=== PATIENT | male | born 1955 | race Caucasian/White ===

== ENCOUNTER 2017-04-03 10:38 | Inpatient (IN) | payer MEDICARE ==
[2017-04-03] VITALS (23 sets, daily range): BP systolic 103–160; BP diastolic 69–101
[~2017-04-03] VITALS: Ht 177.8 cm; Wt 68.1 kg
[2017-04-03 11:07] LABS: HEMOGLOBIN 14.1 g/dL (14.1-18.0); LYMPH # 2.2 K/mm3 (0.7-4.5); LYMPH % 12.4 % (10-50)
--- NOTE | 2017-04-03 11:11 | Emergency Room Report ---
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 Clinical Suspician of Infection? Mental Status: Sepsis Risk: Have you (or family members/close friends) recently traveled outside the [place]? If Yes, where/when: Have you had exposure to infectious disease within the past month? TB? Other? Specify: Comment The patient complains of constant chest pain for one week with shortness of breath. He denies palpitations or sensation of tachycardia. He says he saw his primary care physician in the office on Sunday, but states no tests were done at that time. He saw him again today and was sent to the emergency room. He denies any history of cardiac disease. His only medication is for arthritis. He is a former smoker. ALLERGIES Coded Allergies: No Known Drug Allergies (03/19/15) History Medical History General Angina: No FL: No Hypertension? No Hyperlipidemia? No CHF? No COPD? No Asthma? No Hernia? Yes CVA? No Seizures? No Diabetes? No UTI? No Stones? No GB Disease: No Hepatitis? No Cataracts? No Glaucoma? No TB? No Cancer? No Immunization Hx DT/Tetanus > 10 Years Ago Flu Refused Pneumonia Never Had Surgical Hx Previous Surgery?Y CARPEL TUNNEL LEFT HAND CERVICAL DISC FUSION/PLAT LEFT INGUINAL HERNIA RPR Family History Family Hx Diabetes No CAD No Hypertension No Hyperlipidemia No Cancer No TB No Social History Smoking Hx Packs/day 1 1/2 - 2 Packs Alcohol Alcohol: No Review of Systems All Other Systems Reviewed and Negative Respiratory shortness of breath Cardiovascular chest pain, denies palpitations, denies syncope Gastrointestinal nausea, vomiting Physical Exam Vital Signs Vital Signs Date Time Temp Pulse Resp B/P Pulse O2 O2 Flow FiO2 Ox Delivery Rate 04/03 1210 60 18 99/76 98 2 04/03 1200 66 18 98/43 100 2 04/03 1144 81 18 134/66 100 2 04/03 1140 85 18 114/77 100 3 04/03 1124 87 18 103/83 100 3 04/03 1055 20 04/03 1055 99.1 219 20 159/95 100 3 04/03 1038 99.1 219 20 159/95 96 General Appearance moderate distress Eye Exam - bilateral eye normal exam, bilateral eye PERRL, bilateral eye EOMI Ear, Nose, Throat hearing grossly normal, normal ENT inspection Neck normal inspection, non-tender, supple, full range of motion Respiratory Status Yes: trachea midline, chest symmetrical. No: respiratory distress. Lung Sounds bilateral: normal breath sounds, lungs clear. Cardiovascular no peripheral edema, no gallop, no JVD, no murmur, no rub, tachycardia Peripheral Pulses Comment Weak Gastrointestinal normal bowel sounds, normal exam, non tender, soft, no organomegaly Extremities non-tender, normal range of motion, normal inspection Neurologic alert, alteration specialist II-XII nml as tested, normal exam, no motor/sensory deficits, oriented x 3 Mental status normal mood/affect Skin pallor Medical Decision Making LABS/Meds/Orders Pt receiving controlled substance in ED? Yes Malcom was queried for this patient? No Reason not queried - emergent pt cond=no time Results/Orders Laboratory Tests 04/03/17 1125: PT 14.2 H, INR 1.31 H 04/03/17 1050: Sodium 134 L, Potassium 4.4, Chloride 100, Carbon Dioxide 23, BUN 39 H, Creatinine 1.4 H, Estimated GFR (MDRD) 52, Glucose 163 H, Calcium 8.1 L, Total Bilirubin 1.0, AST 118 H, ALT 206 H, Alkaline Phosphatase 126 H, Creatine Kinase 120, CK-MB (CK-2) Rel Index 2.0, CK and CKMB Interp 2.4, Troponin I 0.62 H, Total Protein 6.6, Albumin 2.9 L, Globulin 3.7 H, Albumin/ Globulin Ratio 0.8 L, WBC 17.6 H, RBC 4.48 L, Hgb 14.1, Hct 42.7, MCV 95.5, RDW 13.0, Plt Count 225, MPV 8.7, Gran % 79.7, Gran # 14.0 H, Total Counted 100 , Lymphocytes % 12.4, Monocytes % 7.3, Eosinophils % 0.5, Basophils % 0.1, Neutrophils 76, Band Neutrophils 2, Lymphocytes (Manual) 15, Lymphocytes # 2.2, Monocytes (Manual) 6, Monocytes # 1.3 H, Eosinophils # 0.1, Basophils # 0.0, Metamyelocytes 1, Platelet Estimate NORMAL, PUBS MCHC 32.9, MCH 31.4 H Current Medication Orders Sig/Silvano Start time Last Medication Dose Route Stop Time Status Admin Aspirin 0 .STK-MED ONE 04/03 1144 DC .ROUTE Amiodarone HCl 150 MG ONCE ONE 04/03 1115 DC 04/03 Dextrose/Water 100 ML IV 04/03 1124 1138 Amiodarone HCl 900 MG .[id number] 04/03 1115 AC 04/03 Dextrose/Water 500 ML IV 04/04 0248 1155 Aspirin 324 MG ONCE ONE 04/03 1115 DC 04/03 PO 04/03 1116 1144 Fentanyl Citrate 100 MCG ONCE ONE 04/03 1115 DC 04/03 IV 04/03 1116 1057 Metoprolol Tartrate 5 MG ONCE ONE 04/03 1115 DC 04/03 IV 04/03 1116 1102 Midazolam HCl 5 MG ONCE ONE 04/03 1115 DC 04/03 IV 04/03 1116 1055 Metoprolol Tartrate 0 .STK-MED ONE 04/03 1102 DC IV Sodium Chloride 10 ML PRN PRN 04/03 1100 AC IV 04/04 1100 Fentanyl Citrate 0 .STK-MED ONE 04/03 1055 DC IV Midazolam HCl 0 .STK-MED ONE 04/03 1054 DC .ROUTE Sodium Chloride 1,000 ML .STK-MED ONE 04/03 1045 DC IV Orders Procedure Date/time Status Decision to admit 04/03 1219 Active LHC W/VENTRICLE 04/03 1218 Active PROTHROMBIN TIME 04/03 1110 Complete MAGNESIUM 04/03 1107 Active ELECTROCARDIOGRAM REQUEST 04/03 1101 Active IV SALINE LOCK 04/03 1101 Active CBC WITH AUTO DIFF 04/03 1101 Complete CARDIAC ENZYMES 04/03 1101 Complete CHEM 12 PROFILE 04/03 1101 Complete DIFFERENTIAL-WBC 04/03 1050 Complete CM/EKG CM/EKG Comments EKG interpreted by Pedrito Adame MD: Rhythm: Wide complex tachycardia, likely ventricular tachycardia Rate: 215 EKG #2 interpreted by Pedrito Adame MD: Rhythm: sinus Rate: 92 Gray: normal Ectopy: Premature ventricular contractions Conduction: normal ST Segment Changes: none T Wave Changes: Inferior and lateral inversion Q Waves: none No evidence of acute ischemia or injury Pulmonary disease pattern EKG #3 interpreted by Pedrito Adame MD: Rhythm: sinus bradycardia Rate: 59 Gray: normal Ectopy: Premature ventricular contractions Conduction: normal ST Segment Changes: none T Wave Changes: Inversion inferior and lateral Q Waves: none No evidence of acute ischemia or injury Progress - Patient moved to critical care room. Call placed to cardiology. Dr. Lopez presented immediately to the emergency department. The patient was sedated and cardioverted. 12:33 PM: I have discussed the case with Zaira for Dr. Gonzales who agrees to admit the patient to the hospital. We discussed the patient's clinical information, including history, exam, laboratory and radiology results and ED course. Per hospital procedure, I will write temporary bridge inpatient orders on the patient. Specific orders requested by the admitting physician: Continue amiodarone drip, nothing by mouth for cardiac cath Procedures Cath/NG/IV/CPR/Add.Proc Physician assisted procedures Risks/benefits discussed with pt/guardian? 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 Defibrillation pads applied. Sedated with a total of 5 mg of Versed and 100 g of fentanyl. Good sedation obtained. Cardioverted with 200 J synchronized. Sinus rhythm restored. Patient tolerated the procedure well. Departure Departure Disposition Still a Patient Clinical Impression Primary Impression: Ventricular tachycardia Secondary Impressions: Non-ST elevation (NSTEMI) myocardial infarction Condition STABLE Referrals Kaveh OLIVARES,Tru Lee (Family) ED Critical Care Critical Care Yes Time spent 75-104 min Vital system(s) involved: Circulatory Failure I was present at bedside for Coordinating pt's care, Interpreting EKGs/Strips , During my initial exam, Reviewing lab results, Reviewing old records, Discussing pt condition, For re-examinations, Examining radiographs at 1302
[2017-04-03 11:42] LABS: NEUTROPHILS 76 % (42-76)
[2017-04-03 12:06] LABS: BUN 39 mg/dL (7-18)
[2017-04-03 12:08] LABS: GFR (ESTIMATED) 52 ML/MIN (>60)
--- NOTE | 2017-04-03 12:22 | RADIOLOGY REPORT PS360 ---
CHEST-PORTABLE COMPARISON: None HISTORY: Chest pain TECHNIQUE: Portable upright chest FINDINGS: The lung powell are well expanded. There are prominent somewhat coarse bronchovascular markings in left perihilar region and left lower lobe but they are partially obscured by overlying defibrillator paddle. The left upper lung powell are relatively clear. Cardiac size is normal and the vascularity is normal and is no pleural fluid. IMPRESSION: Coarse markings as described suggesting a diffuse pneumonia involving left lower lobe but somewhat poorly evaluated on this film and without old films for comparison. If pneumonia strongly suspected clinically a repeat PA and lateral chest would be helpful for better evaluation
--- OUTSIDE RECORDS SUMMARY | 2017-04-03 12:22 | External Medical Summary Rpt | CCD ---
Author Author , ROSENDO Organization [facility] Address Unknown Phone [email or web address] Purpose Continuity of Care Document - 04-03-2017 through 2016 Results Labs Lab Lab Date Result Refere Interp Status Commen Order Detail nces retati t Range on Whole blood INR measurement (04-03-2017 11:25) Comment: IS PATIENT ON ANTICOAGULANTS? Y Whole = 1.31 0.9-1.1 complet blood 017 ed INR 11:25 measure ment Comment: INDICATION INR RANGE Comment: Comment: THERAPY FOR DVT, PE, ATRIAL FIB; 2.0 - 3.0 Comment: PROPHYLAXIS FOR VTE Comment: Comment: THERAPY FOR MECHANICAL HEART 2.5 - 3.5 Comment: VALVE; PREVENTION OF SYSTEMIC Comment: EMBOLISM SECONDARY TO AMI Prothro = 14.2 9.4-11. complet mbin 017 SECONDS 8 ed time 11:25 (PT) in platele t poor p CBC w auto diff (04-03-2017 10:50) Automat = 0.0 0-0.2 complet ed 017 K/MM3 ed blood 10:50 basophi l count (count/ vo Baso % = 0.1 % 0.1-2.0 complet 017 ed 10:50 Automat = 0.1 0.0-0.4 complet ed 017 K/mm3 ed blood 10:50 eosinop hil count Automat = 0.5 % 0.1-12. complet ed 017 0 ed blood 10:50 eosinop hils/10 0 leukocy t Blood = 14.0 1.3-8.0 complet granulo 017 K/mm3 ed cytes 10:50 automat ed count (numb Granulo = 79.7 37.0-80 complet cyte 017 % .0 ed percent 10:50 age Blood = 42.7 42.0-52 complet hematoc 017 % .0 ed rit 10:50 (volume fractio n) Blood = 14.1 14.1-18 complet hemoglo 017 g/dL .0 ed bin 10:50 measure ment (mass/v olum Absolut = 2.2 0.7-4.5 complet e 017 K/mm3 ed lymphoc 10:50 yte count Lymphoc = 12.4 10-50 complet yte 017 % ed count, 10:50 blood, automat ed Mean = 31.4 27-31.2 complet corpusc 017 pg ed ular 10:50 hemoglo bin (MCH) determ Automat = 32.9 31.8-35 complet ed 017 g/dl .4 ed erythro 10:50 cyte mean corpusc ular h Automat = 95.5 82.2-97 complet ed 017 fl .8 ed erythro 10:50 cyte mean corpusc ular v Absolut = 1.3 0.1-1.0 complet e 017 K/mm3 ed monocyt 10:50 e count [place] % = 7.3 % 1.7-9.3 complet 017 ed 10:50 Automat = 8.7 7.4-10. complet ed 017 fl 4 ed blood 10:50 platele t mean volume mikie Blood = 225 142-424 complet platele 017 K/mm3 ed t count 10:50 Red = 4.48 4.6-6.2 complet blood 017 M/mm3 ed cell 10:50 count Automat = 13.0 11.5-17 complet ed 017 % .5 ed erythro 10:50 cyte distrib ution width Blood = 17.6 4.8-10. complet leukocy 017 K/MM3 8 ed wesly 10:50 count (number /volume ) Differential panel, method unspecified - (04-03-2017 10:50) Automat 2 = 2 % 0-8 complet ed 017 ed blood 10:50 band neutrop hil percent a Manual = 1 % 0-1 complet blood 017 ed metamye 10:50 locytes /100 leukocy t Monocyt = 6 % 2-9 complet e % 017 ed 10:50 Platele NORMAL complet t 017 NORMAL ed estimat 10:50 L e Neutrop = 76 % 42-76 complet hil 017 ed count 10:50 LYMPH 15 % 10-50 complet 017 ed 10:50 Blood = 100 complet total 017 #CELLS ed cell 10:50 count Differential panel, method unspecified - (04-03-2017 10:50) LYMPH 15 % 10% - Normal complet 017 50% ed 10:50 Platele NORMAL complet ts 017 ed [Presen 10:50 ce] in Blood by Light microsc opy
--- OUTSIDE RECORDS SUMMARY | 2017-04-03 12:22 | External Medical Summary Rpt ---
Author Author ROSENDO Young, [employer] Organization [employer] Address Unknown Phone Unavailable Results INR in Blood by Coagulation assay Observa Value Referen Units Interpr Notes Date tion ce etation Range IS PATIENT ON ANTICOAGULANTS? Y INR in 0.9 - 1.1 No High INDICATIO Apr 03 Blood by informati N 2017 Coagulati on in 11:25 AM on assay source INR data RANGETHER APY FOR DVT, PE, ATRIAL FIB; 2.0 - 3.0PROPHY LAXIS FOR VTETHERAP Y FOR MECHANICA L HEART 2.5 - 3.5VALVE; PREVENTIO N OF SYSTEMICE MBOLISM SECONDARY TO AMI Prothromb 9.4 - SECONDS High No Apr 03 in time 11.8 informati 2016 (PT) in on in 11:25 AM Platelet source poor data plasma by Coagulati on assay Cardiac enzymes Observa Value Referen Units Interpr Notes ti ce etation Range Creatine 0 - 4.0 U/L Normal No Apr 03 kinase.MB informati 2016 /Creatine on in 10:50 AM source kinase.to data abdiel [Ratio] in Serum or Plasma Creatine 0.0 - 3.6 ng/mL Normal No Apr 03 kinase.MB informati 2017 on in 10:50 AM [Mass/vol source ume] in data Serum or Plasma Creatine 39 - 308 U/L Normal No Apr 03 kinase informati 2016 [Enzymati on in 10:50 AM c source activity/ data volume] in Serum or Plasma Troponin 0.00 - ng/mL High Apr 03 I.cardiac 0.06 2017 CRITICAL 10:50 AM [Mass/vol RESULTS ume] in Serum or RESU Plasma LTS CALLED TO: RUBIN.MAN 04/03/17 1208 O'Vasu,Ka itlyn> 0.5 IS CONSISTEN T WITH MYOCARDIA L ISCHEMIA OR INFARCTIO N Comprehensive metabolic 2000 panel in Serum or Plasma Observa Value Referen Units Interpr Notes Date tion ce etation Range Albumin/G 1.1 - 1.8 No Low No Apr 03 lobulin informati informati 2016 [Mass on in on in 10:50 AM ratio] in source source Serum or data data Plasma Albumin 3.4 - 5.0 gm/dL Low No Apr 03 [Mass/vol informati 2017 ume] in on in 10:50 AM Serum or source Plasma data Alkaline 46 - 116 U/L High Apr 03 phosphata informati 2016 se on in 10:50 AM [Enzymati source c data activity/ volume] in Serum or Plasma Bilirubin 0.2 - 1.0 mg/dL Normal Apr 03 .total informati 2016 [Mass/vol on in 10:50 AM ume] in source Serum or data Plasma Urea 7 - 18 mg/dL High Apr 03 nitrogen informati 2016 [Mass/vol on in 10:50 AM ume] in source Serum or data Plasma Calcium 8.5 - mg/dL Low Apr 03 [Mass/vol 10.1 informati 2016 ume] in on in 10:50 AM Serum or source Plasma data Chloride 98 - 107 mmoL/L Normal Apr 03 [Moles/vo informati 2017 lume] in on in 10:50 AM Serum or source Plasma data Carbon 21.0 - mmoL/L Normal Apr 03 dioxide, 32.0 informati 2016 total on in 10:50 AM [Moles/vo source lume] in data Serum or Plasma Creatinin 0.70 - mg/dL High No Apr 03 e 1.30 informati 2016 [Mass/vol on in 10:50 AM ume] in source Serum or data Plasma Estimated >60 ML/MIN No REFERENCE Apr 03 informati RANGE: 2017 glomerula on in >60 10:50 AM r source ML/MIN/1. filtratio data 73 SQUARE n rate METERSIf (GF this patient is -A merican, then multiply theresult by 1.210. Globulin 1.3 - 3.2 gm/dL High Apr 03 [Mass/vol informati 2017 ume] in on in 10:50 AM Serum source data Glucose 74 - 106 mg/dL High No Apr 03 [Mass/vol informati 2017 ume] in on in 10:50 AM Serum or source Plasma data Potassium 3.5 - 5.1 mmoL/L Normal No Apr 03 informati 2017 [Moles/vo on in 10:50 AM lume] in source Serum or data Plasma Sodium 136 - 145 mmoL/L Low No Apr 03 [Moles/vo 2016 lume] in on in 10:50 AM Serum or source Plasma data Aspartate 15 - 37 U/L High Apr 032016 aminotran on in 10:50 AM sferase source [Enzymati data c activity/ volume] in Serum or Plasma Alanine 12 - 78 U/L High Apr 03 aminotran 2016 sferase on in 10:50 AM [Enzymati source c data activity/ volume] in Serum or Plasma Protein 6.4 - 8.2 gm/dL Normal Apr 03 [Mass/vol 2016 ume] in on in 10:50 AM Serum or source Plasma data CBC W Auto Differential panel in Blood Observa Value Referen Units Interpr Notes Date tion ce etation Range Basophils 0 - 0.2 K/MM3 Normal Apr 032016 [#/volume on in 10:50 AM ] in source Blood by data Automated count Basophils 0.1 - 2.0 % Normal No Apr 032016 leukocyte on in 10:50 AM s in source Blood by data Automated count Eosinophi 0.0 - 0.4 K/mm3 Normal No Apr 03 ls 2016 [#/volume on in 10:50 AM ] in source Blood by data Automated count Eosinophi 0.1 - % Normal Apr 03 ls/100 12.0 2016 leukocyte on in 10:50 AM s in source Blood by data Automated count Granulocy 1.3 - 8.0 K/mm3 High No Apr 03 wesly 2016 [#/volume on in 10:50 AM ] in source Blood by data Automated count Granulocy 37.0 - % Normal Apr 03 wesly/100 80.0 2016 leukocyte on in 10:50 AM s in source Blood by data Automated count Hematocri 42.0 - % Normal Apr 03 t [Volume 52.0 2016 on in 10:50 AM Fraction] source of Blood data Hemoglobi 14.1 - g/dL Normal Apr 03 n 18.0 2016 [Mass/vol on in 10:50 AM ume] in source Blood data Lymphocyt 0.7 - 4.5 K/mm3 Normal Apr 03 es 2016 [#/volume on in 10:50 AM ] in source Unspecifi data ed specimen by Automated count Lymphocyt 10 - 50 % Normal Apr 03 es 2016 [#/volume on in 10:50 AM ] in source Unspecifi data ed specimen by Automated count Erythrocy 27 - 31.2 pg High No Apr 03 te mean 2016 corpuscul on in 10:50 AM ar source hemoglobi data n [Entitic mass] Erythrocy 31.8 - g/dl Normal Apr 03 te mean 35.4 2016 corpuscul on in 10:50 AM ar source hemoglobi data n concentra tion [Mass/vol ume] by Automated count Erythrocy 82.2 - fl Normal Apr 03 te mean 97.8 2016 corpuscul on in 10:50 AM ar volume source [Entitic data volume] by Automated count Monocytes 0.1 - 1.0 K/mm3 High Apr 032016 [#/volume on in 10:50 AM ] in source Blood by data Automated count Monocytes 1.7 - 9.3 % Normal No Apr 03 /100 2016 leukocyte on in 10:50 AM s in source Blood by data Automated count Platelet 7.4 - fl Normal Apr 03 mean 10.4 2016 volume on in 10:50 AM [Entitic source volume] data in Blood by Automated count Platelets 142 - 424 K/mm3 Normal No Apr 032016 [#/volume on in 10:50 AM ] in source Blood data Erythrocy 4.6 - 6.2 M/mm3 Low No Apr 03 wesly 2016 [#/volume on in 10:50 AM ] in source Amniotic data fluid Erythrocy 11.5 - % Normal Apr 03 te 17.5 2016 distribut on in 10:50 AM ion width source [Entitic data volume] by Automated count Leukocyte 4.8 - K/MM3 High Apr 03 s 10.8 2016 [#/volume on in 10:50 AM ] in source Blood data Differential panel, method unspecified - Observa Value Referen Units Interpr Notes Date tion ce etation Range Neutrophi 0 - 8 % Normal Apr 03 ls.band 2016 form/100 on in 10:50 AM leukocyte source s in data Blood by Automated count LYMPH 15 10 - 50 % Normal Apr 032016 tion in 10:50 source AM data Metamyelo 0 - 1 % Normal No Apr 03 cytes/100 2016 on in 10:50 AM leukocyte source s in data Blood by Manual count Monocytes 2 - 9 % Normal No Apr 032016 leukocyte on in 10:50 AM s in source Blood by data Automated count Platele NORMAL No No No No Apr 03 ts informa informa informa informa 2016 [Presen tion in tion in tion in tion in 10:50 ce] in source source source source AM Blood data data data data by Light microsc opy Neutrophi 42 - 76 % Normal No Apr 03 ls 2016 [#/volume on in 10:50 AM ] in source Blood by data Automated count Cells No #CELLS No No Apr 03 Counted informati informati informati 2016 Total [#] on in on in on in 10:50 AM in Blood source source source data data data
--- OUTSIDE RECORDS SUMMARY | 2017-04-03 12:22 | External Medical Summary Rpt | CCD ---
Author Author , ROSEND[facility] Organization [facility] Address Unknown Phone [email or web address] Purpose Continuity of Care Document - 04-03-2017 [...] 017 K/mm3 ed monocyt 10:50 e count Bracken % = 7.3 % 1.7-9.3 complet 017 [...]
--- OUTSIDE RECORDS SUMMARY | 2017-04-03 12:22 | External Medical Summary Rpt | CCD ---
Author Author [employer] Organization [employer] Address Unknown Phone Unavailable Purpose Continuity of Care Document - through 2016
--- OUTSIDE RECORDS SUMMARY | 2017-04-03 12:22 | External Medical Summary Rpt | CCD ---
Demographics Preferred Language Swedish Marital Status Unknown Jainism Affiliation Unknown Race Unknown Ethnic Group Unknown Author Author , DANILO ROBBINS Address Unknown Phone Immunization No patient found.
--- OUTSIDE RECORDS SUMMARY | 2017-04-03 12:22 | External Medical Summary Rpt | CCD ---
Demographics Preferred Language Irish Marital Status Unknown Holiness Affiliation Unknown Race Unknown Ethnic Group Unknown Author Author , DANILO ROBBINS Address Unknown Phone Immunization No patient found.
--- NOTE | 2017-04-03 12:49 | CONSULT NOTE ---
Standard Demographics Patient Demo Date of Consultation: 04/03/17 Referring Provider: Samm Gonzales MD Reason for Consultation: V.tach, chest pain PRIMARY DIAGNOSIS: chest pain Problem list Problem list: 1. Smoker 2. History of present illness: History of present illness: 61 yo WM sent to ER from Dr. Linn' office for complaint of chest pain for one week. EKG in ER showed V. Tach at 215 bpm. Cardiology called, Dr. Lopez responded and pt was sedated with combo of Versed and Fentanyl for immediate Cardioversion. Subsequent EKG's showed NSR with pulmonary disease pattern and no evidence of acute ST elevation per ER MD notes. Past Medical History: General: Hypertension No CVA No Seizures No TB No COPD No Asthma No Diabetes No Angina No IA No Hyperlipidemia No Cancer No Ulcers No GB Disease No Other CERVICAL DISC FUSION/PLAT Past Surgical HX: Previous Surgery?Y CARPEL TUNNEL LEFT HAND CERVICAL DISC FUSION/PLAT LEFT INGUINAL HERNIA RPR Allergies Coded Allergies: No Known Drug Allergies (03/19/15) Current Medications: Current Medications Fentanyl Citrate 25 MCG Q3MINP PRN IV (UNV) Fentanyl Citrate 50 MCG Q3MINP PRN IV (UNV) Flumazenil 0.2 MG PRN PRN IV (UNV) Heparin Sodium (Beef Lung) 5,000 UNITS PRN PRN IV (UNV) Heparin Sodium/Sodium Chloride 3,000 UNITS PRN PRN IV (UNV) Hydromorphone HCl 0.5 MG Q4HP PRN IV (UNV) Influenza Virus Vaccine Quadrival 0.5 ML PRN PRN IM (UNV) Lidocaine HCl 20 ML ONCE ONE IJ (UNV) Midazolam HCl 1 MG Q3MINP PRN IV (UNV) Midazolam HCl 1 MG Q3MINP PRN IV (UNV) Miscellaneous Information 0 CONSULT PHARMACY * (UNV) Naloxone HCl 0.4 MG [id number] PRN IV (UNV) Nicotine 21 MG DAILYP PRN TD (UNV) Nitroglycerin 800 MCG PRN PRN IV (UNV) Ondansetron HCl 4 MG Q6HP PRN IV (UNV) Sodium Chloride 10 ML PRN PRN IV (UNV) Verapamil HCl 5 MG PRN PRN IV (UNV) Aspirin 0 .STK-MED ONE .ROUTE (DC) Amiodarone HCl 150 MG ONCE ONE IV (DC) Dextrose/Water 100 ML Amiodarone HCl 900 MG .[id number] IV Dextrose/Water 500 ML Aspirin 324 MG ONCE ONE PO (DC) Fentanyl Citrate 100 MCG ONCE ONE IV (DC) Metoprolol Tartrate 5 MG ONCE ONE IV (DC) Midazolam HCl 5 MG ONCE ONE IV (DC) Metoprolol Tartrate 0 .STK-MED ONE IV (DC) Sodium Chloride 10 ML PRN PRN IV Fentanyl Citrate 0 .STK-MED ONE IV (DC) Midazolam HCl 0 .STK-MED ONE .ROUTE (DC) Sodium Chloride 1,000 ML .STK-MED ONE IV (DC) Immunization HX DT/Tetanus > 10 Years Flu Refused Pneumonia Never Had Family history Family HX Family Hx Insignificant No Diabetes No CAD No Hypertension No Hyperlipidemia No Cancer No TB No Social Hx: Smoking HX Tobacco No Packs/day 1 1/2 - 2 PACKS Alcohol Alcohol: No Hx of Drug Use Drug Use? No Review of systems: Constitutional see HPI. Respiratory SOB with excertion. Cardiovascular chest pain Gastrointestinal/Abdominal No no symptoms reported Genitourinary No: no symptoms reported. Musculoskeletal back pain. Neurological No: no symptoms reported. Exam: Admission Vital Signs: 1ST Vital Signs Result Date Time Pulse Ox 96 04/03 1038 B/P 159/95 04/03 1038 Temp 99.1 04/03 1038 Pulse 219 04/03 1038 Resp 20 04/03 1038 O2 Flow Rate 3 04/03 1055 Last Vital Signs: Vital Signs Result Date Time Pulse Ox 98 04/03 1210 B/P 99/76 04/03 1210 O2 Flow Rate 2 04/03 1210 Pulse 60 04/03 1210 Resp 18 04/03 1210 Temp 99.1 04/03 1055 Exam General appearance: awake Cardiovascular: tachycardia Respiratory: diminished breath sounds Extremities: moves all, no peripheral edema Neuro: alert, intact, oriented Laboratory data: Laboratory Tests 04/03/17 1125: PT 14.2 H, INR 1.31 H 04/03/17 1050: Sodium 134 L, Potassium 4.4, Chloride 100, Carbon Dioxide 23, BUN 39 H, Creatinine 1.4 H, Estimated GFR (MDRD) 52, Glucose 163 H, Calcium 8.1 L, Total Bilirubin 1.0, AST 118 H, ALT 206 H, Alkaline Phosphatase 126 H, Creatine Kinase 120, CK-MB (CK-2) Rel Index 2.0, CK and CKMB Interp 2.4, Troponin I 0.62 H, Total Protein 6.6, Albumin 2.9 L, Globulin 3.7 H, Albumin/ Globulin Ratio 0.8 L, WBC 17.6 H, RBC 4.48 L, Hgb 14.1, Hct 42.7, MCV 95.5, RDW 13.0, Plt Count 225, MPV 8.7, Gran % 79.7, Gran # 14.0 H, Total Counted 100 , Lymphocytes % 12.4, Monocytes % 7.3, Eosinophils % 0.5, Basophils % 0.1, Neutrophils 76, Band Neutrophils 2, Lymphocytes (Manual) 15, Lymphocytes # 2.2, Monocytes (Manual) 6, Monocytes # 1.3 H, Eosinophils # 0.1, Basophils # 0.0, Metamyelocytes 1, Platelet Estimate NORMAL, PUBS MCHC 32.9, MCH 31.4 H Plan Assessment: 1. V. Tach, s/p cardioversion 2. Elevated Troponin, NSTEMI 3. Smoker 4. Elevated WBC TIKA N-STEMI SCORE TIKA N-STEMI SCORE Response Value Age of patient Less than 65 yrs 0 Number of risk factors for CAD Presence of less than 3 0 Prior coronary artery stenosis (seen in angiography) 50% or more 1 ST-Segment deviation on ECG (>1 min) Absent 0 Prior aspirin intake No ASA in the last 7 days 0 Severe anginal chest pain 2 or more episodes/24hr 1 Elevated cardiac markers(CK-MB or troponin) Present 1 Total 3 Plan: 1. Amiodarone loading due to V. tach 2. C today due to NSTEMI at 3200
--- NOTE | 2017-04-03 13:18 | PHARMACY CLINIC NOTE ---
Patient Demographics Patient Demographics Admission date: 04/03/17 Date: 04/03/17 Time: 1318 Allergies Coded Allergies: No Known Drug Allergies (03/19/15) HEIGHT- FT: 5 IN: 10.00 K.040 VTE General Information Labs: Laboratory Tests 04/03 04/03 1125 1050 Coagulation PT (9.4 - 11.8 SECONDS) 14.2 H INR (0.9 - 1.1) 1.31 H Hematology Hgb (14.1 - 18.0 g/dL) 14.1 Hct (42.0 - 52.0 %) 42.7 Plt Count (142 - 424 K/mm3) 225 Disclaimer The following section includes nursing documentation that has been pulled in for pharmacy review. Clinical trial participant? No VTE prophylaxis [id number] VTE prophylaxis ordered? Yes Type of prophylaxis/treatment: SHANIQUE at 1318
--- NOTE | 2017-04-03 14:09 | RADIOLOGY REPORT PS360 ---
CARDIAC CATHETERIZATION DATE OF CATHETERIZATION:04/03/2017 1:38 PM PROCEDURES: 1. Left heart catheterization 2. Left ventriculogram 3. Selective coronary angiogram 4. Drug-eluting stent deployment to the mid LAD INDICATION FOR TEST: 1. Acute non-ST elevation myocardial infarction 2. Ischemic ventricular tachycardia 3. Coronary artery disease 4. Systolic congestive heart failure Informed consent was obtained prior to the procedure. COMPLICATIONS: None ESTIMATED BLOOD LOSS: Less than 10 ml. TECHNIQUE: One percent lidocaine used to anesthetize the right anterior aspect of the wrist. The right radial artery was accessed via the Seldinger technique. A 6 Sami sheath was placed in the right radial artery. 2.5 mg of verapamil, 800 mcg of nitroglycerin and 5000 U Heparin were given through the arterial sheath. The trap catheter was also used to perform left heart catheterization left ventriculogram and selective coronary angiography. At the end of the diagnostic angiogram and additional 2000 units of heparin was ministered intravenously. 180 mg of Brilinta was administered orally. A JL 3.5 guide catheter was used intubate the left main artery and the BMW wire was placed in the LAD. A 3 mm x 15 mm resolute [place] stent was deployed at 16 jey reducing the critical stenosis to 0%. The end of the procedure the sheath was removed good hemostasis was achieved using TR banding patient transferred to the postop holding area in stable condition ANGIOGRAPHIC RESULTS: 1. The left main artery has a distal eccentric 10-20% stenosis 2. The left anterior descending artery has proximal 10-20% stenoses followed by a mid vessel 80% concentric stenosis. The LAD is a large wraparound apex vessel and collateralizes the chronically occluded distal right coronary artery. 3. The circumflex artery is a nondominant vessel and has proximal 20% stenoses 4. The right coronary artery is a dominant vessel and has proximal 50% stenosis and then occluded after the RV marginal branch. The distal vessel fills via collaterals mostly from the apical LAD 5. The OROURKE ventriculogram reveals severe left ventricular dilatation global hypokinesis estimated ejection fraction 20% 6. The left ventricular end-diastolic pressure 38 mmHg IMPRESSION: 1. Ischemic cardiomyopathy resulting from severe critical 2 vessel coronary artery disease 2. Chronically occluded dominant right coronary artery which is filled via collaterals from a severe to critically stenosed large wraparound apex LAD system 3. Successful stenting of the mid LAD critical disease reduced to 0% with 1 drug-eluting stent 4. Severe left ventricular dilatation with severely reduced ejection fraction 5. Severely elevated LVEDP PLAN: 1. Brilinta and aspirin 2. Standard therapy for systolic heart failure including carvedilol david inhibitors diuretics spironolactone 3. Patient should be fitted for a lifevest prior to discharge home 4. Cardiac rehabilitation 5. Avoidance of tobacco products
--- NOTE | 2017-04-03 17:11 | HISTORY AND PHYSICAL REPORT ---
Demographics: Admit date: 04/03/17 Chief complaint: chest pain PRIMARY DIAGNOSIS: NSTEMI, V tach Allergies: Coded Allergies: No Known Drug Allergies (03/19/15) History of present illness: History of present illness: 61 yo WM sent to ER from Dr. Linn' office for complaint of chest pain for one week. EKG in ER showed V. Tach at 215 bpm. Cardiology called, Dr. Lopez responded and pt was sedated with combo of Versed and Fentanyl for immediate Cardioversion. Subsequent EKG's showed NSR with pulmonary disease pattern and no evidence of acute ST elevation per ER MD notes. Above per Cardiology DU Luo. Patient reports acute onset of chin pain that radiated to midsternal chest on Sunday. Pain began when he picked up a piece of firewood and was accompanied by shortness of breath. Pain remained consistent over the weekend. Today, he was sent from PCP office to ED and found to be in V.Tach. Cardiology was consulted. He was cardioverted, started on an amiodarone gtt and taken to the animal laboratory technician where he had one stent placed in his Mid LAD. Sevee LV dysfunction with EF 20%. See cath report. Currently, patient is resting in bed. Denies any further pain. Past medical history: Family HX Diabetes No CAD No Hypertension No Hyperlipidemia No Cancer No TB No Immunization HX DT/Tetanus > 10 Years Ago Flu Refused Pneumonia Never Had General Angina: No [place]: No Hypertension? No Hyperlipidemia? No CHF? No COPD? No Asthma? No Hernia? Yes CVA? No Seizures? No Diabetes? No UTI? No Stones? No GB Disease: No Hepatitis? No Arthritis? Yes Cataracts? No Glaucoma? No TB? No Cancer? No Past Surgical HX Previous Surgery?Y CARPEL TUNNEL LEFT HAND CERVICAL DISC FUSION/PLAT LEFT INGUINAL HERNIA RPR Current home meds: Reported Medications MISCELLANEOUS (UNKNOWN MEDICATION) 1 TAB PO PRN PRN ARTHRITIS Social Hx: Smoking HX Tobacco No Packs/day 1 1/2 - 2 PACKS Alcohol Alcohol: No Hx of Drug Use Drug Use? No Patient's support system is good Review of systems: Constitutional No: no symptoms reported. Eyes No: no symptoms reported. Ears, Nose, Mouth, Throat No no symptoms reported Respiratory No: no symptoms reported. Cardiovascular see HPI Gastrointestinal/Abdominal No no symptoms reported Genitourinary No: no symptoms reported. Musculoskeletal No: no symptoms reported. Skin No: no symptoms reported. Neurological No: no symptoms reported. Psychiatric No: no symptoms reported. Exam: Lab data for last 24 hours: Laboratory Tests 04/03/17 1358: POC Activ Clotting Time 241 *H 04/03/17 1300: Troponin I 1.07 H 04/03/17 1125: Magnesium 2.0, PT 14.2 H, INR 1.31 H 04/03/17 1050: Sodium 134 L, Potassium 4.4, Chloride 100, Carbon Dioxide 23, BUN 39 H, Creatinine 1.4 H, Estimated GFR (MDRD) 52, Glucose 163 H, Calcium 8.1 L, Total Bilirubin 1.0, AST 118 H, ALT 206 H, Alkaline Phosphatase 126 H, Creatine Kinase 120, CK-MB (CK-2) Rel Index 2.0, CK and CKMB Interp 2.4, Troponin I 0.62 H, Total Protein 6.6, Albumin 2.9 L, Globulin 3.7 H, Albumin/ Globulin Ratio 0.8 L, WBC 17.6 H, RBC 4.48 L, Hgb 14.1, Hct 42.7, MCV 95.5, RDW 13.0, Plt Count 225, MPV 8.7, Gran % 79.7, Gran # 14.0 H, Total Counted 100 , Lymphocytes % 12.4, Monocytes % 7.3, Eosinophils % 0.5, Basophils % 0.1, Neutrophils 76, Band Neutrophils 2, Lymphocytes (Manual) 15, Lymphocytes # 2.2, Monocytes (Manual) 6, Monocytes # 1.3 H, Eosinophils # 0.1, Basophils # 0.0, Metamyelocytes 1, Platelet Estimate NORMAL, PUBS MCHC 32.9, MCH 31.4 H Admission vital signs: 1ST Vital Signs Result Date Time Pulse Ox 96 04/03 1038 B/P 159/95 04/03 1038 Temp 99.1 04/03 1038 Pulse 219 04/03 1038 Resp 20 04/03 1038 O2 Flow Rate 3 04/03 1055 O2 Delivery ROOM AIR 04/03 1443 Exam General appearance: normal appearance, alert, active, awake, no acute distress Eyes: anicteric ENT: mucous membranes moist Neck: normal inspection, non-tender, no carotid bruit, no JVD Cardiovascular: no ectopics, normal sinus rhythm, regular rate & rhythm, no murmur, normal peripheral pulses Respiratory: clear to auscultation, chest non-tender, good air movement ABD: non-distended, normal bowel sounds, no rebound, soft, mild diffuse tenderness Genitourinary: no dysuria, no hematuria, urine clear Extremities: moves all Musculoskeletal: equal muscle strength, sensation intact Skin: dry, intact, normal color 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 Non-ST elevation (NSTEMI) myocardial infarction 2. Ventricular tachycardia Plan: Continue dual antiplatelet therapy. Monitor telemetry. Obtain echo. Patient will need life vest prior to discharge. Lipid panel ordered for the a.m. at 1714
[2017-04-04] VITALS (11 sets, daily range): BP systolic 95–121; BP diastolic 45–78
[2017-04-04 06:18] LABS: LYMPH # 1.3 K/mm3 (0.7-4.5); LYMPH % 8.3 % (10-50)
[2017-04-04 06:28] LABS: HEMOGLOBIN 12.4 g/dL (14.1-18.0)
--- NOTE | 2017-04-04 06:52 | ACUTE CARE PROGRESS NOTE (QUA) ---
Progress Notes Subjective Date 04/04/17 Time 0651 Patient/family reports: feeling better, no complaints Nursing reports: alert, no complaints Objective Findings Last VS-Temp:97.6 B/P:112/57 Pulse:59 Resp:19 SaO2:95 OXYGEN Last weight lbs:150 oz:0 K.040 Method:Estimated-Unable to Weigh Exam General appearance: alert, active Eyes: anicteric, conjunctiva clear Cardiovascular: no JVD, regular rate & rhythm Respiratory: clear to auscultation ABD: soft, no tenderness Assessment/Plan Problem List 1. Non-ST elevation (NSTEMI) myocardial infarction 2. Ventricular tachycardia Patient condition Stable Plan: continue current care, Echo prelim with 20% EF. Life vest today. Close f/ u in ICU today. This inpt stay is expected to cross 2 MNs from start of care Yes at 0632
[2017-04-04] MEDS ORDERED: BUPROPION HYDR150 M1 PO (07:26)
[2017-04-04] MEDS ORDERED: OMEPRAZOLE40 MG PO (07:26)
[2017-04-04] MEDS ORDERED: NABUMETONE500 MG PO (08:16)
--- NOTE | 2017-04-04 08:38 | ACUTE CARE PROGRESS NOTE (QUA) ---
See Addendum Progress Notes Subjective Date 04/04/17 Time 0828 Note 61 yo WM in bed in NAD. No chest pain. Feeling better. Objective Findings Last VS-Temp:97.6 B/P:112/57 Pulse:59 Resp:19 SaO2:95 OXYGEN Last weight lbs:151 oz:9 K.748 Method:Bed Scales Exam General appearance: alert, awake, no acute distress Cardiovascular: regular rate & rhythm Respiratory: crackles left posterior base otherwise clear ABD: soft, no tenderness Extremities: moves all, no peripheral edema Neuro: alert, intact, oriented Reviewed: medications, vital signs, lab results, radiology report Assessment/Plan Problem List 1. Non-ST elevation (NSTEMI) myocardial infarction Assessment/Plan: VALDEZ to LAD. On DAPT. 2. Ventricular tachycardia Assessment/Plan: No further VT after cardiac cath and stenting. 3. Cardiomyopathy, ischemic Assessment/Plan: On amiodarone loading, will switch to PO. On coreg, spironolactone, digoxin. On CONCEPCION but with cough, will switch to ARB. LifeVest prior to discharge. 4. Cough Assessment/Plan: likely due to left base abnormality/?pneumonia but with CONCEPCION started yesterday, will switch to ARB to alleviate that possibility. Patient condition Stable Plan: As above. This inpt stay is expected to cross 2 MNs from start of care Yes at 0838
--- NOTE | 2017-04-04 09:43 | RADIOLOGY REPORT PS360 ---
CHEST(2 VIEWS-NOT PORTABLE) Ordering Physician: Samm Gonzales MD Patient Age: 61 years: Male HISTORY: Possible left sided pneumonia TECHNIQUE: PA and lateral chest COMPARISON : Portable chest 04/03/2017 FINDINGS Diffuse infiltrate is seen throughout the left lower lobe This. Interstitial & alveolar infiltrate is more evident and appears to have progressed since yesterday's pCXR study. Aspiration pneumonia will be considered with this lower lobe distribution. The left upper lung field is clear. The right lung appears well-expanded with only slight atelectasis at right lung base and minor blunting at right CP angle-posterior sulcus. I favor atelectasis and possible small effusion cannot exclude subtle early infiltrate just above right hemidiaphragm posteriorly. . Heart is normal in size left airam partially obscured inferiorly to the infiltrate. Otherwise the airam and mediastinal structures satisfactory. Previous anterior fusion and discectomy lower C-spine noted. No chest wall abnormalities. T-spine intact. IMPRESSION Diffuse Left lower lobe pneumonia, with slight progression since yesterday's portable CXR.
[2017-04-05 02:00] VITALS: BP 107/54; BP 115/67
[2017-04-05 04:00] VITALS: BP 114/46
--- NOTE | 2017-04-05 07:19 | ACUTE CARE PROGRESS NOTE (QUA) ---
Progress Notes Subjective Date 04/05/17 Time 0718 Note Patient feels good with no chest pain or shortness of air, eating breakfast comfortably. Heart irregular. Lungs clear, abdomen soft. Transfer out of step down, continue telemetry monitoring, await life vest placement and then discharged today. Objective Findings Last VS-Temp:98.3 B/P:124/68 Pulse:66 Resp:22 SaO2:94 OXYGEN Last weight lbs:150 oz:2 K.096 Method:Floor Scales Assessment/Plan Problem List 1. Non-ST elevation (NSTEMI) myocardial infarction 2. Ventricular tachycardia 3. Cardiomyopathy, ischemic 4. Cough Patient condition Improving Plan: continue current care This inpt stay is expected to cross 2 MNs from start of care Yes at 0718
--- NOTE | 2017-04-05 07:35 | ACUTE CARE PROGRESS NOTE (QUA) ---
See Addendum Progress Notes Subjective Date 04/05/17 Time 0726 Note 61 yo WM in bed eating breakfast in NAD. Feeling better. Still with congested cough and some SOA with lieing flat. Telemetry shows no significant arrhythmias since brief bradycardia yesterday. Objective Findings Last VS-Temp:98.3 B/P:124/68 Pulse:66 Resp:22 SaO2:94 OXYGEN Last weight lbs:150 oz:2 K.096 Method:Floor Scales Exam General appearance: alert, awake, no acute distress Cardiovascular: regular rate & rhythm Respiratory: left base crackles otherwise decreased breath sounds without wheezing. Extremities: moves all, no peripheral edema Neuro: alert, intact, oriented Reviewed: medications, vital signs, lab results Assessment/Plan Problem List 1. Non-ST elevation (NSTEMI) myocardial infarction Assessment/Plan: S/P VALDEZ to LAD for which he is on DAPT. 2. Ventricular tachycardia Assessment/Plan: No recurrence since admission. 3. Cardiomyopathy, ischemic Assessment/Plan: On coreg and ARB along with spironolactone and digoxin. (Possible cough on CONCEPCION). Consider switching to entresto at office follow up. LifeVest today and then could be discharged home. 4. Cough 5. Lung consolidation Assessment/Plan: Antibiotics per Dr. Gonzales. Weaning off oxygen. 6. QT prolongation Assessment/Plan: repeat EKG today. Patient condition Stable Plan: As above. Repeat LFT's today and if further elevated then consider holding statin. This inpt stay is expected to cross 2 MNs from start of care Yes at 1103
[2017-04-05 08:00] VITALS: BP 98/47
[2017-04-05 08:15] LABS: BILIRUBIN, INDIRECT 0.75 mg/dL (0-0.9)
[2017-04-05 08:19] VITALS: BP 124/68
[2017-04-05 12:00] VITALS: BP 95/62
[2017-04-05] MEDS ORDERED: HABITROL21 MG/24 H TD (13:55)
[2017-04-05] MEDS ORDERED: LIPITOR40 M1 PO (13:56)
[2017-04-05] MEDS ORDERED: ASPIRIN 81MG TA81 MG PO (13:56)
[2017-04-05] MEDS ORDERED: BRILINTA90 MG PO (13:56)
[2017-04-05] MEDS ORDERED: ALDACTONE 25MG25 MG PO (13:56)
[2017-04-05] MEDS ORDERED: DIGOXIN0.125 MG PO (13:57)
[2017-04-05] MEDS ORDERED: AVAPRO75 MG PO (13:57)
[2017-04-05] MEDS ORDERED: CARVEDILOL 1212.5 MG PO (13:57)
[2017-04-05] MEDS ORDERED: DOXYCYCLINE HY100 M4 PO (13:58)
--- NOTE | 2017-04-05 14:02 | DISCHARGE SUMMARY STANDARD ---
Demographics Admit date: 04/03/17 Discharge date: 04/05/17 History of present illness History of present illness 61 yo WM sent to ER from Dr. Linn' office for complaint of chest pain for one week. EKG in ER showed V. Tach at 215 bpm. Cardiology called, Dr. Lopez responded and pt was sedated with combo of Versed and Fentanyl for immediate Cardioversion. Subsequent EKG's showed NSR with pulmonary disease pattern and no evidence of acute ST elevation per ER MD notes. Above per Cardiology [facility] Luo. Patient reports acute onset of chin pain that radiated to midsternal chest on Sunday. Pain began when he picked up a piece of firewood and was accompanied by shortness of breath. Pain remained consistent over the weekend. Today, he was sent from PCP office to ED and found to be in V.Tach. Cardiology was consulted. He was cardioverted, started on an amiodarone gtt and taken to the laboratory sampler where he had one stent placed in his Mid LAD. Sevee LV dysfunction with EF 20%. See cath report. Currently, patient is resting in bed. Denies any further pain. Hospital Course Hospital Course: After catheterization patient was transferred to the intensive care unit where he was watched overnight and then transition to the step down unit. Echocardiogram revealed continued suppressed ejection fraction of 20% consistent with ischemic cardiomyopathy. The patient remained pain-free and comfortable. Patient was found to have bronchopneumonia on chest x-ray and doxycycline was started with good results. Today patient feels good, has no oxygen requirement, has normal vital signs he will be discharged home with the medications as noted, with statin, CONCEPCION inhibitor, beta jose daniel and high intensity antiplatelet therapy as well as doxycycline. 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 Nicotine patch was prescribed and patient strongly encouraged not to smoke. Discharge diagnoses Problem List 1. Non-ST elevation (NSTEMI) myocardial infarction 2. Ventricular tachycardia 3. Cardiomyopathy, ischemic 4. Cough 5. Lung consolidation 6. QT prolongation Medications Medications: Discharge meds are as noted. Follow up Follow up in office in: 4 DAYS with: Tanvir Lopez MD at 1401
--- NOTE | 2017-04-05 14:02 | DISCHARGE SUMMARY STANDARD ---
Demographics Admit date: 04/03/17 Discharge date: 04/05/17 History of present illness History of present illness 61 yo WM sent to ER from Dr. Linn' office for complaint of chest pain for one week. EKG in ER showed V. Tach at 215 bpm. Cardiology called, Dr. Lopez responded and pt was sedated with combo of Versed and Fentanyl for immediate Cardioversion. Subsequent EKG's showed NSR with pulmonary disease pattern and no evidence of acute ST elevation per ER MD notes. Above per Cardiology [facility] Luo. Patient reports acute onset of chin pain that radiated to midsternal chest on Sunday. Pain began when he picked up a piece of firewood and was accompanied by shortness of breath. Pain remained consistent over the weekend. Today, he was sent from PCP office to ED and found to be in V.Tach. Cardiology was consulted. He was cardioverted, started on an amiodarone gtt and taken to the equipment operator/laborer where he had one stent placed in his Mid LAD. Sevee LV dysfunction with EF 20%. See cath report. Currently, patient is resting in bed. Denies any further pain. Hospital Course Hospital Course: After catheterization patient was transferred to the intensive care unit where he was watched overnight and then transition to the step down unit. Echocardiogram revealed continued suppressed ejection fraction of 20% consistent with ischemic cardiomyopathy. The patient remained pain-free and comfortable. Patient was found to have bronchopneumonia on chest x-ray and doxycycline was started with good results. Today patient feels good, has no oxygen requirement, has normal vital signs he will be discharged home with the medications as noted, with statin, CONCEPCION inhibitor, beta jose daniel and high intensity antiplatelet therapy as well as doxycycline. 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 Nicotine patch was prescribed and patient strongly encouraged not to smoke. Discharge diagnoses Problem List 1. Non-ST elevation (NSTEMI) myocardial infarction 2. Ventricular tachycardia 3. Cardiomyopathy, ischemic 4. Cough 5. Lung consolidation 6. QT prolongation Medications Medications: Discharge meds are as noted. Follow up Follow up in office in: 4 DAYS with: Tanvir Lopez MD at 1401
[2017-04-05 15:20] VITALS: BP 108/71
--- NOTE | 2017-04-08 13:02 | RADIOLOGY REPORT PS360 ---
PROCEDURE: 2-D M-mode and color Doppler study INDICATIONS FOR THE TEST: Chest pain + COPD Heart Murmur Tobacco Smoking Palpitations Fatigue Syncope Edema Hypertension Diabetes Mellitus Rheumatic Fever SOB+HURTADO Obesity Hyperlipidemia Family History HD Additional History NSTEMI, POST STENT, V TACH, CHF PATIENT INFORMATION HEIGHT: 70 WEIGHT:150 GENDER: Male B/P:99/76 2-D/M-MODE INTERPRETATION: 2-D MEASUREMENTS OBSERVED VALUES IN CMS Right Ventricular Dimension (RVDd) 2.4 Interventricular Septum (Thickness)(IVsd) 1.3 Left Ventricular Internal Dimensions(LVIDd) 5.2 Left Ventricular Posterior Wall (Thickness)(LVPWd) 1.0 Aortic Root 2.8 Aortic Cusp Separation 1.8 Left Atrial Dimensions (LAD) 4.3 2D 1. Technically difficult study because of the patient's factor and poor acoustic windows. Endocardial surfaces are very poorly visualized. 2. The left atrium is mildly enlarged, left ventricle is mildly dilated, there is mild concentric left ventricular hypertrophy, visually estimated ejection fraction approximately 25-30%, left ventricle is globally hypokinetic. Superimposed segmental wall motion abnormality cannot be excluded. 3. The right atrium and right ventricle are moderately enlarged, contractility of the right ventricle is moderately reduced. 4. The aortic valve is minimally thickened and fibrosed. 5. The mitral and tricuspid valve leaflets are minimally thickened. 6. No significant pericardial effusion noted. 7. Pulmonic valve is poorly visualized. DOPPLER INTERROGATION: Doppler interrogation of the aortic, mitral and tricuspid valvular presence of mild mitral and tricuspid regurgitation, tricuspid regurgitant jet velocity insufficient for calculation of the right ventricular systolic pressure, diastolic parameters are inconclusive. CONCLUSION: 1. Biatrial enlargement, dilated left ventricle, severely reduced left ventricular systolic function, visually estimated ejection fraction 45-30% left ventricle is globally hypokinetic, superimposed segmental wall motion abnormalities cannot be excluded. 2. Moderately enlarged right ventricle with moderate reduction in right ventricular systolic pressure. 3. Mild mitral and tricuspid regurgitation 4. No significant pericardial effusion noted.
== END 2017-04-05 20:00 | disposition home or self-care (01) | DRG 246 ==
LOC: ER 10:38 → 2ND 12:20 → ICU 12:20 → ER 12:20 → ICU 12:22 → 2ND 12:22 → ICU 13:01 → 2ND 04-05 09:38
PROVIDERS: Emergency Medicine; Internal Medicine; Internal Medicine Adolescent Medicine
PROC: 027034Z Dilation of Coronary Artery, One Artery with Drug-eluting Intraluminal Device, Percutaneous Approach (ICD-10-PCS; 2017-04-03)
PROC: B2111ZZ Fluoroscopy of Multiple Coronary Arteries using Low Osmolar Contrast (ICD-10-PCS; 2017-04-03)
PROC: B2151ZZ Fluoroscopy of Left Heart using Low Osmolar Contrast (ICD-10-PCS; 2017-04-03)
PROC: 4A023N7 Measurement of Cardiac Sampling and Pressure, Left Heart, Percutaneous Approach (ICD-10-PCS; 2017-04-03)
PROC: B2111ZZ Fluoroscopy of Multiple Coronary Arteries using Low Osmolar Contrast (ICD-10-PCS; 2017-04-03)
PROC: B2151ZZ Fluoroscopy of Left Heart using Low Osmolar Contrast (ICD-10-PCS; 2017-04-03)
PROC: 4A023N7 Measurement of Cardiac Sampling and Pressure, Left Heart, Percutaneous Approach (ICD-10-PCS; principal; 2017-04-03 13:00)
DX: I21.4 Non-ST elevation (NSTEMI) myocardial infarction (principal); J18.9 Pneumonia, unspecified organism; I47.2 Ventricular tachycardia; I50.20 Unspecified systolic (congestive) heart failure; I25.119 Atherosclerotic heart disease of native coronary artery with unspecified angina pectoris; Z72.0 Tobacco use; I25.5 Ischemic cardiomyopathy
CPT/HCPCS: 99152; C1725; C1769; C1876; J0282; J1644; J7060; Q9967